=== PATIENT | male | born 2000 | race Caucasian/White ===

== ENCOUNTER 2019-02-05 15:50 | Emergency (ER) | payer BC ==
[2019-02-05 16:15] VITALS: BP 111/51
--- NOTE | 2019-02-05 16:28 | UC ---
Skin Complaint HPI - HPI Summary HPI Summary: 18 yo male with rash on his abd and back x 2 years asymptomatic - History of Current Complaint Chief Complaint: UCSkin Time Seen by Provider: 02/05/19 16:12 Stated Complaint: RED SPOTS ON CHEST Hx Obtained From: Patient Onset/Duration: Gradual Onset, Other - years Timing: Constant Onset Severity: Mild Current Severity: Mild Pain Intensity: 0 Pain Scale Used: 0-10 Numeric Location: Other - trunk Character: Redness Aggravating Factor(s): Humidity, Other - heat Associated Signs & Symptoms: Positive: Rash - Allergy/Home Medications Allergies/Adverse Reactions: Allergies Allergy/AdvReac Type Severity Reaction Status Date / Time No Known Allergies Allergy Verified 02/05/19 16:15 PMH/Surg Hx/FS Hx/Imm Hx Previously Healthy: Yes - Surgical History Surgical History: None - Family History Known Family History: Positive: Hypertension, Non-Contributory - Social History Alcohol Use: Occasionally Substance Use Type: Marijuana Substance Use Comment - Amount & Last Used: occasionally Smoking Status (MU): Former Smoker Review of Systems All Other Systems Reviewed And Are Negative: Yes Constitutional: Positive: Negative Skin: Positive: Rash Eyes: Positive: Negative ENT: Positive: Negative Respiratory: Positive: Negative Cardiovascular: Positive: Negative Gastrointestinal: Positive: Negative Genitourinary: Positive: Negative Motor: Positive: Negative Neurovascular: Positive: Negative Musculoskeletal: Positive: Negative Neurological: Positive: Negative Psychological: Positive: Negative Physical Exam Triage Information Reviewed: Yes Appearance: Well-Appearing, No Pain Distress, Well-Nourished Vital Signs: Initial Vital Signs Temp 99.8 F 02/05/19 16:11 Pulse 84 02/05/19 16:11 Resp 16 02/05/19 16:11 BP 111/51 02/05/19 16:11 Pulse Ox 100 02/05/19 16:11 Vital Signs Reviewed: Yes Eyes: Positive: Conjunctiva Clear ENT: Positive: Hearing grossly normal. Negative: Nasal congestion, Nasal drainage, Tonsillar exudate, Trismus, Muffled voice, Hoarse voice Neck: Positive: Supple, Nontender, No Lymphadenopathy Respiratory: Positive: Lungs clear, Normal breath sounds, No respiratory distress, No accessory muscle use Cardiovascular: Positive: RRR, No Murmur Neurological: Positive: Alert Psychological Exam: Normal Skin Exam: Other - well demarcated rash with serpintine borders c/w tinea versicolor Course/Dx - Diagnoses Provider Diagnosis: Tinea versicolor Discharge ED - Sign-Out/Discharge Documenting (check all that apply): Patient Departure All imaging exams completed and their final reports reviewed: Yes - Discharge Plan Condition: Stable Disposition: HOME Prescriptions: Fluconazole [Diflucan 150 MG (NF)] 150 mg PO WEEKLY #3 tab Patient Education Materials: Tinea Versicolor (ED) Referrals: Nasra Dick [Medical Doctor] - If Needed Additional Instructions: Buy some selsan blue shampoo rub it on the affected areas of your body daily for 2 weeks let it dry then shower then do this once weekly for 2 months - Billing Disposition and Condition Condition: STABLE Disposition: Home
== END 2019-02-05 16:38 | disposition home or self-care (01) ==
LOC: UCCORT 15:50
DX: B36.0 Pityriasis versicolor (principal); Z87.891 Personal history of nicotine dependence
CPT/HCPCS: 99202; G0463